=== PATIENT | male | born 1940 | race Two or more races ===

== ENCOUNTER 2021-08-05 15:31 | Inpatient (IN) | payer MEDICARE, OTHER ==
[~2021-08-05] VITALS: Ht 180.3 cm; Wt 94.1 kg
[2021-08-05] MEDS ORDERED: SODIUM CHLORIDE 0.9% 500 ML IV ONE (15:45)
[2021-08-05 16:20] LABS: Albumin 4.1 g/dL (3.4-5.0); BUN/Creatinine Ratio 15.7; Calcium 9.1 mg/dL (8.5-10.1); Magnesium 2.7 mg/dL (1.6-2.6)
[2021-08-05 16:21] LABS: Bilirubin, Total 0.5 mg/dL (0.2-1.0); Total Protein 8.3 g/dL (6.4-8.2)
[2021-08-05 16:41] LABS: Basophils # (auto) 0.1 10 ^3/uL (0-0.2); Basophils % (auto) 0.8 % (0.0-2.0); Eosinophils # (auto) 0.1 10 ^3/uL (0-0.8); Hematocrit 43.4 % (41.0-53.0); Hemoglobin 15.3 g/dL (13.5-17.5); Lymphocytes # (auto) 1.6 10 ^3/uL (0.4-5.4); Lymphocytes % (auto) 23.8 % (10.0-50.0); Mean Corpuscular Hemoglobin 31.7 pg (28.0-32.0); Mean Corpuscular Hgb Conc. 35.3 g/dL (32.0-36.0); Mean Corpuscular Volume 89.9 fL (80.0-100.0); Monocytes # (auto) 0.6 10 ^3/uL (0-1.3); Monocytes % (auto) 8.8 % (0.0-12.0); Neutrophils # (auto) 4.4 10 ^3/uL (1.6-8.6); Neutrophils % (auto) 64.6 % (37.0-80.0); Nucleated Red Blood Cells % 0.1 %; Red Blood Cells 4.82 10^6/uL (4.5-5.90); Red Cell Distribution Width 13.8 % (11.8-14.3); White Blood Cell 6.8 10^3/uL (4.4-10.8)
[2021-08-05] MEDS ORDERED: DOCUSATE SOD 100 MG CAP PO PRN (21:45)
[2021-08-05] MEDS ORDERED: ONDANSETRON HCL 4 MG/2 ML VIAL IV PRN (21:45)
[2021-08-05] MEDS ORDERED: HYDROcodone-ACET 5/325MG TAB PO PRN (21:45)
[2021-08-05] MEDS ORDERED: ACETAMINOPHEN 325 MG TAB PO PRN (21:45)
[2021-08-05] MEDS ORDERED: hydrALAZINE HCL 20 MG/ML VL IV PRN (21:45)
[2021-08-05] MEDS ORDERED: NITROGLYCERIN 0.4 MG SL TAB SL PRN (22:45)
[2021-08-05] MEDS ORDERED: MORPHINE SULFATE INJECTION 2 MG/ML SYRG IV PRN (22:45)
[2021-08-05] MEDS: SODIUM CHLORIDE 0.9% 1,000 ML IV SCH (23:40)
[2021-08-06 00:51] VITALS: BP 145/72
[2021-08-06 05:00] VITALS: BP 129/72
[2021-08-06 08:01] LABS: Basophils # (auto) 0.1 10 ^3/uL (0-0.2); Basophils % (auto) 1.2 % (0.0-2.0); Eosinophils # (auto) 0.2 10 ^3/uL (0-0.8); Eosinophils % (auto) 2.6 % (0.0-7.0); Hematocrit 39.1 % (41.0-53.0); Hemoglobin 13.7 g/dL (13.5-17.5); Lymphocytes # (auto) 1.6 10 ^3/uL (0.4-5.4); Lymphocytes % (auto) 27.3 % (10.0-50.0); Mean Corpuscular Hemoglobin 31.7 pg (28.0-32.0); Mean Corpuscular Hgb Conc. 35.1 g/dL (32.0-36.0); Mean Corpuscular Volume 90.4 fL (80.0-100.0); Monocytes # (auto) 0.6 10 ^3/uL (0-1.3); Monocytes % (auto) 11.1 % (0.0-12.0); Neutrophils # (auto) 3.3 10 ^3/uL (1.6-8.6); Neutrophils % (auto) 57.8 % (37.0-80.0); Nucleated Red Blood Cells % 0.3 %; Red Blood Cells 4.33 10^6/uL (4.5-5.90); Red Cell Distribution Width 13.6 % (11.8-14.3); White Blood Cell 5.8 10^3/uL (4.4-10.8)
[2021-08-06 08:59] LABS: Potassium 4.3 mmol/L (3.5-5.1)
[2021-08-06 09:08] LABS: Albumin 3.6 g/dL (3.4-5.0); BUN/Creatinine Ratio 18.1; Bilirubin, Total 0.6 mg/dL (0.2-1.0); Calcium 8.4 mg/dL (8.5-10.1); Total Protein 7.3 g/dL (6.4-8.2)
[2021-08-06 10:00] VITALS: BP 124/75
[2021-08-06] MEDS ORDERED: MULTIPLE VITAMIN TAB PO SCH (10:00)
[2021-08-06] MEDS ORDERED: THIAMINE 100mg/ml INJ (200mg/2ml VIAL) IV SCH (10:00)
[2021-08-06] MEDS ORDERED: FOLIC ACID 1 MG in D5W 5% 50 ML INJ SCH (10:00)
[2021-08-06] MEDS: amLODIPine BESYLATE 5 MG TAB PO SCH (10:10)
[2021-08-06] MEDS: ASPirin 81 mg TAB PO SCH (10:10)
[2021-08-06] MEDS: SODIUM CHLORIDE 0.9% 1,000 ML IV SCH (10:34)
[2021-08-06 12:05] VITALS: BP 141/79
[2021-08-06 17:00] VITALS: BP 139/76
[2021-08-06 19:49] LABS: Cholesterol 133 mg/dL (< 200); HDL Cholesterol 38 mg/dL (40-59); LDL Cholesterol 72 mg/dL (< 100); Triglycerides 166 mg/dL (< 150)
[2021-08-06] MEDS ORDERED: TEMAZEPAM 15 MG CAP PO PRN (20:00)
[2021-08-06 22:00] VITALS: BP 118/77
[2021-08-06] MEDS ORDERED: ATORVASTATIN 20 MG TAB PO SCH (22:00)
[2021-08-07] MEDS: SODIUM CHLORIDE 0.9% 1,000 ML IV SCH (02:47)
[2021-08-07 04:57] VITALS: BP 120/66
[2021-08-07 06:07] LABS: Basophils # (auto) 0 10 ^3/uL (0-0.2); Basophils % (auto) 0.8 % (0.0-2.0); Eosinophils # (auto) 0.2 10 ^3/uL (0-0.8); Eosinophils % (auto) 2.9 % (0.0-7.0); Hemoglobin 13.4 g/dL (13.5-17.5); Lymphocytes # (auto) 1.6 10 ^3/uL (0.4-5.4); Monocytes # (auto) 0.6 10 ^3/uL (0-1.3); Monocytes % (auto) 10.6 % (0.0-12.0); Neutrophils # (auto) 2.9 10 ^3/uL (1.6-8.6); Neutrophils % (auto) 55.7 % (37.0-80.0); Nucleated Red Blood Cells % 0.1 %; White Blood Cell 5.2 10^3/uL (4.4-10.8)
[2021-08-07 06:28] LABS: BUN/Creatinine Ratio 15.9
[2021-08-07 06:29] LABS: Calcium 8.4 mg/dL (8.5-10.1); Magnesium 2.5 mg/dL (1.6-2.6)
[2021-08-07 07:06] LABS: Mean Corpuscular Hemoglobin 31.9 pg (28.0-32.0); Mean Corpuscular Hgb Conc. 35.3 g/dL (32.0-36.0)
[2021-08-07 07:07] LABS: Hematocrit 37.9 % (41.0-53.0); Mean Corpuscular Volume 90.5 fL (80.0-100.0); Red Blood Cells 4.18 10^6/uL (4.5-5.90)
[2021-08-07 07:08] LABS: Red Cell Distribution Width 13.8 % (11.8-14.3)
[2021-08-07 08:21] VITALS: BP 125/79
[2021-08-07] MEDS: ASPirin 81 mg TAB PO SCH (09:26)
[2021-08-07] MEDS: amLODIPine BESYLATE 5 MG TAB PO SCH (09:27)
[2021-08-07] MEDS ORDERED: MULTIPLE VITAMIN TAB PO SCH (10:00)
[2021-08-07] MEDS ORDERED: FOLIC ACID 1 MG, MULTIPLE VITAMIN 10 ML, MAGNESIUM SULF SDV 50% 8 MEQ, THIAMINE INJ 100... INJ SCH ×10 (12:00)
[2021-08-07 13:17] VITALS: BP 106/61
[2021-08-07] MEDS ORDERED: LISI-716 PO (15:44)
[2021-08-07] MEDS ORDERED: AMLO-496 PO (15:44)
[2021-08-07] MEDS ORDERED: CLOP75TA70 PO (15:44)
[2021-08-07] MEDS ORDERED: LEVO100T8 PO (15:44)
[2021-08-07] MEDS ORDERED: HYDR12.55 PO (15:44)
[2021-08-07] MEDS ORDERED: ATEN100T PO (15:44)
[2021-08-07] MEDS ORDERED: ATOR40TA52 PO (15:44)
[2021-08-07] MEDS ORDERED: LEVOTHYROXINE SODIUM 100 MCG TAB PO SCH (15:45)
[2021-08-07] MEDS ORDERED: THIA100T5 PO (15:53)
[2021-08-07] MEDS ORDERED: FOLI1TAB6 PO (15:53)
[2021-08-07 16:42] VITALS: BP 129/68
[2021-08-07 17:41] VITALS: BP 129/68
[2021-08-08] MEDS ORDERED: CLOPIDOGREL BISULFATE 75 MG TAB PO SCH (10:00)
== END 2021-08-07 18:50 | disposition home or self-care (01) | DRG 72 ==
LOC: EDBD 15:31 → ER 15:31 → OVERFLOW 22:41 → WEST WING 23:31
PROVIDERS: ADMIT Nurse Practitioner Family; ATTEND Internal Medicine
DX: G93.41 Metabolic encephalopathy (principal); E03.9 Hypothyroidism, unspecified; E78.5 Hyperlipidemia, unspecified; F17.210 Nicotine dependence, cigarettes, uncomplicated; G51.32 Clonic hemifacial spasm, left; I10 Essential (primary) hypertension; G56.03 Carpal tunnel syndrome, bilateral upper limbs; F10.10 Alcohol abuse, uncomplicated; Y90.3 Blood alcohol level of 60-79 mg/100 ml; Z79.02 Long term (current) use of antithrombotics/antiplatelets; Z86.73 Personal history of transient ischemic attack (TIA), and cerebral infarction without residual deficits; I25.2 Old myocardial infarction; Z79.899 Other long term (current) drug therapy; Z82.49 Family history of ischemic heart disease and other diseases of the circulatory system; Z83.3 Family history of diabetes mellitus; Z20.822 Contact with and (suspected) exposure to COVID-19
CPT/HCPCS: 36415; 70450; 70551; 71045; 80048; 80053; 80061; 80320; 83735; 84443; 85025; 93005; 93306; 93886; 95819; 96360; 97163; G0378; J7060